=== PATIENT | male | born 1945 | race Caucasian/White ===

== ENCOUNTER 2022-11-18 18:31 | Emergency (ER) | payer MEDICARE ==
[~2022-11-18] VITALS: Ht 177.8 cm; Wt 94.4 kg
[~2022-11-18 18:31] MED LIST: ASPI325T PO; LIPI80TA PO; NORV2TAB NG; PRIN10TA PO; TYLE325T5 PO; XANA0.25 PO
[2022-11-18] MEDS ORDERED: DORZ2SOL5 (18:41)
[2022-11-18] MEDS ORDERED: ATOR40TA75 (18:41)
[2022-11-18] MEDS ORDERED: ECOT81TA5 PO (18:41)
[2022-11-18] MEDS ORDERED: AMLO1TAB25 (18:41)
[2022-11-18] MEDS ORDERED: LISI20TA33 (18:41)
[2022-11-18 22:14] LABS: BASO # 0.1 10^3/uL (0.0-0.2); BASO % 0.8 % (0.0-1.0); EOS # 0.2 10^3/uL (0.0-0.5); EOS % 1.7 % (0.0-3.0); HEMATOCRIT 42.7 % (42.0-52.0); HEMOGLOBIN 14.8 g/dl (13.5-17.5); LYMPH # 2.3 10^3/uL (1.5-5.0); LYMPH % 20.9 % (24.0-44.0); MEAN CORPUSCULAR HGB CONC 34.7 g/dl (32.0-36.5); MEAN CORPUSCULAR VOLUME 89.3 fl (80.0-96.0); MONO # 0.9 10^3/uL (0.0-0.8); NEUTROPHILS # 7.5 10^3/uL (1.5-8.5); NEUTROPHILS % 68.1 % (36.0-66.0); PLATELET COUNT, AUTOMATED 292 10^3/uL (150-450); RED BLOOD COUNT 4.78 10^6/uL (4.30-6.10)
[2022-11-18 22:30] VITALS: BP 172/82
[2022-11-18 22:37] LABS: INR 0.94; PARTIAL THROMBOPLASTIN TIME 25.3 SECONDS (24.8-34.2); PROTHROMBIN TIME 12.8 SECONDS (12.5-14.5)
[2022-11-18 22:44] LABS: BLOOD UREA NITROGEN 16 MG/DL (9-23); CALCIUM LEVEL 9.2 MG/DL (8.3-10.6); CARBON DIOXIDE LEVEL 21 MMOL/L (20-31); CHLORIDE LEVEL 107 MMOL/L (98-107); CK-MB VALUE MASS < 1.0 NG/ML (<3.6); CPK CREATINE PHOSPHOKINASE 59 U/L (46-171); CREATININE FOR GFR 1.06 MG/DL (0.70-1.30); GLOMERULAR FILTRATION RATE > 60.0 (>42); GLUCOSE, FASTING 168 MG/DL (74-106); MB/CK RELATIVE INDEX 1.69 (< OR =4); POTASSIUM SERUM 3.9 MMOL/L (3.5-5.1); SODIUM LEVEL 140 MMOL/L (136-145)
[2022-11-18 22:53] LABS: RSV AMPLIFICATION NEGATIVE (NEGATIVE)
[2022-11-18] MEDS ORDERED: ELIQ5TAB PO (23:24)
[2022-11-18] MEDS ORDERED: APIXABAN 5 MG TAB (ELIQUIS) PO ONE (23:25)
[2022-11-18] MEDS ORDERED: NORCO 5/325MG TABLET (HOME DOSE PACK) PO ONE (23:30)
== END 2022-11-18 23:40 | disposition home or self-care (01) ==
LOC: M ED 18:31
DX: I82.401 Acute embolism and thrombosis of unspecified deep veins of right lower extremity (principal); I10 Essential (primary) hypertension; Z86.73 Personal history of transient ischemic attack (TIA), and cerebral infarction without residual deficits; Z87.891 Personal history of nicotine dependence

== ENCOUNTER → 2022-12-23 | Outpatient (CLI) | payer MEDICARE ==
[~2022-12-23] MED LIST changes: +AMLO1TAB25; +ATOR40TA75; +DORZ2SOL5; +ECOT81TA5 PO; +ELIQ5TAB PO; +LISI20TA33
== END ==
LOC: M RAD 12:47
PROVIDERS: ATTEND Family Medicine
DX: I65.23 Occlusion and stenosis of bilateral carotid arteries (principal)

== ENCOUNTER → 2023-03-23 | Outpatient (CLI) | payer MEDICARE ==
[~2023-03-23] MED LIST changes: +PROHANCE 279.3MG/ML 15ML VIAL As Ordered ONE; +PROHANCE 279.3MG/ML 5ML VIAL As Ordered ONE
== END ==
LOC: M RAD 12:30
PROVIDERS: ATTEND Physician Assistant
DX: N42.9 Disorder of prostate, unspecified (principal); R97.20 Elevated prostate specific antigen [PSA]
CPT/HCPCS: 72197; A9576

== ENCOUNTER → 2023-04-27 | Outpatient (CLI) | payer MEDICARE ==
[~2023-04-27] MED LIST changes: -PROHANCE 279.3MG/ML 15ML VIAL As Ordered ONE; -PROHANCE 279.3MG/ML 5ML VIAL As Ordered ONE
== END ==
LOC: M SMT PRO 15:45
PROVIDERS: ATTEND Urology
DX: R97.20 Elevated prostate specific antigen [PSA] (principal)

== ENCOUNTER → 2023-06-07 | Outpatient (CLI) | payer MEDICARE ==
[2023-06-07 09:32] LABS: HEMATOCRIT 45.3 % (42.0-52.0); HEMOGLOBIN 15.3 g/dl (13.5-17.5); MEAN CORPUSCULAR HEMOGLOBIN 30.2 pg (27.0-33.0); MEAN CORPUSCULAR HGB CONC 33.8 g/dl (32.0-36.5); MEAN CORPUSCULAR VOLUME 89.3 fl (80.0-96.0); PLATELET COUNT, AUTOMATED 241 10^3/uL (150-450); RED BLOOD COUNT 5.07 10^6/uL (4.30-6.10); WHITE BLOOD COUNT 8.9 10^3/uL (4.0-10.0)
[2023-06-07 09:45] LABS: BLOOD UREA NITROGEN 17 MG/DL (9-23); CARBON DIOXIDE LEVEL 25 MMOL/L (20-31); CHLORIDE LEVEL 107 MMOL/L (98-107); CREATININE FOR GFR 0.99 MG/DL (0.70-1.30); GLOMERULAR FILTRATION RATE > 60.0 (>42); GLUCOSE, FASTING 145 MG/DL (74-106); POTASSIUM SERUM 4.4 MMOL/L (3.5-5.1); SODIUM LEVEL 142 MMOL/L (136-145)
== END ==
LOC: M LAB 07:50
PROVIDERS: ATTEND Urology
DX: Z01.818 Encounter for other preprocedural examination (principal); C61 Malignant neoplasm of prostate; N39.0 Urinary tract infection, site not specified

== ENCOUNTER 2023-06-16 06:21 | Inpatient (IN) | payer MEDICARE ==
[~2023-06-16] VITALS: Ht 177.8 cm; Wt 85.5 kg
[~2023-06-16 06:21] MED LIST changes: -AMLO1TAB25; +AMLO1TAB25 PO; -ATOR40TA75; +ATOR40TA75 PO; -DORZ2SOL5; +DORZ2SOL5 OD; -LISI20TA33; +LISI20TA33 PO
[2023-06-16] MEDS ORDERED: LR 1,000 ML IV SCH (06:35)
[2023-06-16] MEDS ORDERED: ceFAZolin SOD 2 GM in IV 1 EA IV ONE (06:45)
[2023-06-16] MEDS ORDERED: HEPARIN SOD (PORCINE) 5000UNITS/ML 1ML VIAL/SYRINGE SQ ONE (07:00)
[2023-06-16] MEDS ORDERED: LIDOCAINE 2% 100MG/5ML SDV (FOR ANES.) As Ordered ONE (07:09)
[2023-06-16] MEDS ORDERED: MIDAZOLAM INJ 2MG/2ML VIAL As Ordered ONE (07:09)
[2023-06-16] MEDS ORDERED: fentaNYL 100 MCG/2 ML INJECTION As Ordered ONE (07:09)
[2023-06-16] MEDS ORDERED: HYDROmorphone HCL 2MG/ML 1ML VIAL As Ordered ONE (07:09)
[2023-06-16] MEDS ORDERED: ONDANSETRON 4MG 2ML VIAL As Ordered ONE (07:10)
[2023-06-16] MEDS ORDERED: ROCURONIUM BROMIDE 50MG/5ML VIAL As Ordered ONE ×3 (07:10→10:03)
[2023-06-16] MEDS ORDERED: LIDOCAINE 1% SDV 30ML VIAL As Ordered ONE (07:10)
[2023-06-16] MEDS ORDERED: propofoL 200 MG/20 ML VIAL As Ordered ONE (07:10)
[2023-06-16] MEDS ORDERED: ONDANSETRON 4MG 2ML VIAL IV PRN (07:30)
[2023-06-16] MEDS ORDERED: PERCOCET 5MG/325MG TAB PO PRN (07:30)
[2023-06-16] MEDS ORDERED: ACETAMINOPHEN 1000MG 100ML IV BAG As Ordered ONE (08:12)
[2023-06-16] MEDS ORDERED: GLYCOPYRROLATE INJ 0.2 MG/ML 2 ML VIAL As Ordered ONE (08:21)
[2023-06-16] MEDS: DOCUSATE SODIUM 100MG CAPSULE PO SCH ×2 (09:00→21:19)
[2023-06-16] MEDS ORDERED: ePHEDrine SULFATE 25 MG/5 ML(5MG/ML) SYRINGE As Ordered ONE (11:06)
[2023-06-16] MEDS ORDERED: SUGAMMADEX SODIUM 500 MG/5 ML VIAL (BRIDION) As Ordered ONE (11:07)
[2023-06-16] MEDS ORDERED: ceFAZolin 2 GM/D5W 50 ML IV BAG As Ordered ONE (11:32)
[2023-06-16 12:48] LABS: HEMATOCRIT 40.1 % (42.0-52.0); HEMOGLOBIN 13.9 g/dl (13.5-17.5); MEAN CORPUSCULAR HEMOGLOBIN 30.5 pg (27.0-33.0); MEAN CORPUSCULAR HGB CONC 34.7 g/dl (32.0-36.5); MEAN CORPUSCULAR VOLUME 87.9 fl (80.0-96.0); PLATELET COUNT, AUTOMATED 209 10^3/uL (150-450); RED BLOOD COUNT 4.56 10^6/uL (4.30-6.10); WHITE BLOOD COUNT 11.6 10^3/uL (4.0-10.0)
[2023-06-16 13:10] LABS: BLOOD UREA NITROGEN 23 MG/DL (9-23); CALCIUM LEVEL 8.3 MG/DL (8.3-10.6); CARBON DIOXIDE LEVEL 22 MMOL/L (20-31); CHLORIDE LEVEL 105 MMOL/L (98-107); CREATININE FOR GFR 1.08 MG/DL (0.70-1.30); GLOMERULAR FILTRATION RATE > 60.0 (>42); GLUCOSE, FASTING 185 MG/DL (74-106); POTASSIUM SERUM 4.9 MMOL/L (3.5-5.1); SODIUM LEVEL 138 MMOL/L (136-145)
[2023-06-16] MEDS: HEPARIN SOD (PORCINE) 5000UNITS/ML 1ML VIAL/SYRINGE SC SCH ×2 (14:00→21:20)
[2023-06-16 14:20] VITALS: BP 141/77; TEMP 97.5; O2SAT 98
[2023-06-16 14:50] VITALS: BP 134/73; TEMP 97.5; O2SAT 94
[2023-06-16 15:20] VITALS: BP 136/85; TEMP 97.7; O2SAT 97
[2023-06-16] MEDS ORDERED: HOME MED LIST COMPLETE! XX SCH (15:20)
[2023-06-16] MEDS: NS 1,000 ML IV SCH (16:50)
[2023-06-16] MEDS: ceFAZolin SOD 1 GM in D5W MINI-BAG PLUS 50 ML IV SCH ×2 (16:51→23:34)
[2023-06-16] MEDS: ATORVASTATIN 20 MG TAB PO SCH (21:19)
[2023-06-16 22:00] VITALS: BP 172/88; TEMP 98.6; O2SAT 94
[2023-06-16] MEDS: ACETAMINOPHEN TAB 650MG DOSE (2X325MG) PO PRN (23:35)
[2023-06-16 23:45] VITALS: BP 168/84
[2023-06-17] VITALS (9 sets, daily range): BP systolic 128–164; BP diastolic 72–91; TEMP 98.1–98.8; O2SAT 90–94
[2023-06-17] MEDS ORDERED: hydroCHLOROthiazide 12.5 MG CAPSULE PO ONE
[2023-06-17] MEDS: NS 1,000 ML IV SCH (03:30)
[2023-06-17] MEDS: HEPARIN SOD (PORCINE) 5000UNITS/ML 1ML VIAL/SYRINGE SC SCH ×3 (05:52→22:11)
[2023-06-17] MEDS: ACETAMINOPHEN TAB 650MG DOSE (2X325MG) PO PRN ×2 (05:52→11:11)
[2023-06-17 06:04] LABS: HEMATOCRIT 38.6 % (42.0-52.0); HEMOGLOBIN 13.5 g/dl (13.5-17.5); MEAN CORPUSCULAR HEMOGLOBIN 30.1 pg (27.0-33.0); PLATELET COUNT, AUTOMATED 232 10^3/uL (150-450); RED BLOOD COUNT 4.49 10^6/uL (4.30-6.10); WHITE BLOOD COUNT 15.8 10^3/uL (4.0-10.0)
[2023-06-17 06:28] LABS: BLOOD UREA NITROGEN 23 MG/DL (9-23); CALCIUM LEVEL 8.7 MG/DL (8.3-10.6); CARBON DIOXIDE LEVEL 22 MMOL/L (20-31); CHLORIDE LEVEL 105 MMOL/L (98-107); CREATININE FOR GFR 0.96 MG/DL (0.70-1.30); GLOMERULAR FILTRATION RATE > 60.0 (>42); GLUCOSE, FASTING 160 MG/DL (74-106); POTASSIUM SERUM 4.2 MMOL/L (3.5-5.1); SODIUM LEVEL 138 MMOL/L (136-145)
[2023-06-17] MEDS: DOCUSATE SODIUM 100MG CAPSULE PO SCH ×2 (08:41→22:12)
[2023-06-17] MEDS: PERCOCET 5MG/325MG TAB PO PRN ×3 (13:08→23:28)
[2023-06-17] MEDS: ATORVASTATIN 20 MG TAB PO SCH (22:11)
[2023-06-18 02:00] VITALS: BP 141/97; TEMP 98.4; O2SAT 90
[2023-06-18] MEDS: PERCOCET 5MG/325MG TAB PO PRN ×2 (03:41→10:31)
[2023-06-18] MEDS: HEPARIN SOD (PORCINE) 5000UNITS/ML 1ML VIAL/SYRINGE SC SCH (05:47)
[2023-06-18 06:00] VITALS: BP 142/94; TEMP 98.2; O2SAT 91
[2023-06-18] MEDS ORDERED: CIPROFLOXACIN 500MG TABLET PO SCH (06:00)
[2023-06-18 07:49] LABS: HEMATOCRIT 38.6 % (42.0-52.0); HEMOGLOBIN 13.2 g/dl (13.5-17.5); MEAN CORPUSCULAR HEMOGLOBIN 30.1 pg (27.0-33.0); MEAN CORPUSCULAR HGB CONC 34.2 g/dl (32.0-36.5); MEAN CORPUSCULAR VOLUME 88.1 fl (80.0-96.0); PLATELET COUNT, AUTOMATED 212 10^3/uL (150-450); RED BLOOD COUNT 4.38 10^6/uL (4.30-6.10); WHITE BLOOD COUNT 12.2 10^3/uL (4.0-10.0)
[2023-06-18 08:11] LABS: BLOOD UREA NITROGEN 24 MG/DL (9-23); CALCIUM LEVEL 8.3 MG/DL (8.3-10.6); CARBON DIOXIDE LEVEL 25 MMOL/L (20-31); CHLORIDE LEVEL 101 MMOL/L (98-107); CREATININE FOR GFR 0.97 MG/DL (0.70-1.30); GLOMERULAR FILTRATION RATE > 60.0 (>42); GLUCOSE, FASTING 120 MG/DL (74-106); POTASSIUM SERUM 4.2 MMOL/L (3.5-5.1); SODIUM LEVEL 135 MMOL/L (136-145)
[2023-06-18 08:51] LABS: CREATININE BF 0.9 MG/DL (NOT ESTABLISHED); SOURCE, BODY FLUID CREATININE PERITONEAL
[2023-06-18] MEDS: DOCUSATE SODIUM 100MG CAPSULE PO SCH (09:00)
[2023-06-18] MEDS ORDERED: PERCOCET PO (12:11)
[2023-06-18] MEDS ORDERED: CIPR500T39 PO (12:11)
[2023-06-18] MEDS ORDERED: COLA100C5 PO (12:11)
== END 2023-06-18 14:20 | disposition home or self-care (01) | DRG 708 ==
LOC: M OR 06:21 → M MS5PR 14:20
PROVIDERS: ADMIT Urology; ATTEND Urology
PROC: 07BC4ZX Excision of Pelvis Lymphatic, Percutaneous Endoscopic Approach, Diagnostic (ICD-10-PCS; 2023-06-16)
PROC: 8E0W4CZ Robotic Assisted Procedure of Trunk Region, Percutaneous Endoscopic Approach (ICD-10-PCS; 2023-06-16)
PROC: 0VT04ZZ Resection of Prostate, Percutaneous Endoscopic Approach (ICD-10-PCS; principal; 2023-06-16 07:30)
DX: C61 Malignant neoplasm of prostate (principal); I10 Essential (primary) hypertension; Z20.822 Contact with and (suspected) exposure to COVID-19; Z79.899 Other long term (current) drug therapy

== ENCOUNTER → 2023-07-26 | Outpatient (REF) | payer MEDICARE ==
[~2023-07-26] MED LIST changes: +CIPR500T39 PO; +COLA100C5 PO; +PERCOCET PO
[2023-07-26 18:01] LABS: AMORPHOUS SEDIMENT LARGE (NEGATIVE); APPEARANCE, URINE TURBID (CLEAR); BACTERIA, URINE AUTO NEGATIVE (NEGATIVE); BILIRUBIN, URINE AUTO NEGATIVE (NEGATIVE); BLOOD, URINE BLOOD NEGATIVE (NEGATIVE); CALCIUM OXALATE CRYSTALS SMALL; COLOR, URINE YELLOW (YELLOW); GLUCOSE, URINE (UA) AUTO NEGATIVE (NEGATIVE); KETONE, URINE AUTO NEGATIVE (NEGATIVE); LEUKOCYTE ESTERASE, URINE AUTO TRACE (NEGATIVE); MUCUS, URINE MODERATE (NEGATIVE); NITRITE, URINE AUTO NEGATIVE (NEGATIVE); PROTEIN, URINE AUTO NEGATIVE (NEGATIVE); RBC, URINE AUTO 0 /HPF (0-3); SPECIFIC GRAVITY URINE AUTO 1.027 (1.002-1.035); SQUAMOUS EPITHELIAL CELL UR AU 0 /HPF (0-6); WBC, URINE AUTO 1 /HPF (0-3)
== END ==
LOC: M SMT 17:01
PROVIDERS: ATTEND Urology
DX: N39.0 Urinary tract infection, site not specified (principal)

== ENCOUNTER → 2023-12-10 | Outpatient (CLI) | payer MEDICARE ==
[2023-12-10 12:41] LABS: AMORPHOUS SEDIMENT SMALL (NEGATIVE); APPEARANCE, URINE HAZY (CLEAR); BACTERIA, URINE AUTO NEGATIVE (NEGATIVE); BILIRUBIN, URINE AUTO NEGATIVE (NEGATIVE); BLOOD, URINE BLOOD NEGATIVE (NEGATIVE); COLOR, URINE AMBER (YELLOW); GLUCOSE, URINE (UA) AUTO 1+ mg/dL (NEGATIVE); GRANULAR CAST, URINE AUTO 1 /LPF; KETONE, URINE AUTO NEGATIVE (NEGATIVE); LEUKOCYTE ESTERASE, URINE AUTO NEGATIVE (NEGATIVE); MUCUS, URINE SMALL (NEGATIVE); NITRITE, URINE AUTO NEGATIVE (NEGATIVE); PROTEIN, URINE AUTO 1+ mg/dL (NEGATIVE); RBC, URINE AUTO 1 /HPF (0-3); SPECIFIC GRAVITY URINE AUTO 1.021 (1.002-1.035); SQUAMOUS EPITHELIAL CELL UR AU 0 /HPF (0-6); WBC, URINE AUTO 1 /HPF (0-3)
== END ==
LOC: M PLALAB 10:04
PROVIDERS: ATTEND Urology
DX: C61 Malignant neoplasm of prostate (principal); N39.0 Urinary tract infection, site not specified

== ENCOUNTER → 2024-01-24 | Outpatient (CLI) | payer MEDICARE | LOC: M PLALAB 11:47 | PROVIDERS: ATTEND Urology | DX: C61 Malignant neoplasm of prostate (principal) ==

== ENCOUNTER → 2024-02-09 | Outpatient (CLI) | payer MEDICARE ==
[~2024-02-09] MED LIST changes: +BICA50TA4 PO
== END ==
LOC: M ONCR 14:46
PROVIDERS: ATTEND General Practice
DX: C61 Malignant neoplasm of prostate (principal); N52.31 Erectile dysfunction following radical prostatectomy; N39.46 Mixed incontinence; Z85.820 Personal history of malignant melanoma of skin; Z79.899 Other long term (current) drug therapy; Z90.79 Acquired absence of other genital organ(s)

== ENCOUNTER → 2024-02-29 | Outpatient (CLI) | payer MEDICARE ==
[~2024-02-29] MED LIST changes: +ONDA-282 PO
[2024-02-29] MEDS: LEUPROLIDE ACETATE 45 MG SC ONE (11:29)
== END ==
LOC: M ONCR 11:24
PROVIDERS: ATTEND General Practice
DX: C61 Malignant neoplasm of prostate (principal)
CPT/HCPCS: 96402; G0463; J9217

== ENCOUNTER 2024-03-17 11:38 | Outpatient (RCR) | payer MEDICARE ==
[~2024-03-17 11:38] MED LIST changes: -ONDA-282 PO
[2024-03-27] MEDS ORDERED: ONDA-282 PO (10:23)
== END 2024-03-18 ==
LOC: M ONCR 11:38
PROVIDERS: ATTEND General Practice
DX: Z51.0 Encounter for antineoplastic radiation therapy (principal); C61 Malignant neoplasm of prostate

== ENCOUNTER → 2024-04-17 | Outpatient (RCR) | payer MEDICARE ==
[~2024-04-17] MED LIST changes: +ONDA-282 PO; +OXYB10TA23 PO
== END ==
LOC: M ONCR 03-21 11:38
PROVIDERS: ATTEND General Practice
DX: Z51.0 Encounter for antineoplastic radiation therapy (principal); C61 Malignant neoplasm of prostate

== ENCOUNTER 2024-05-03 08:35 | Outpatient (RCR) | payer MEDICARE | END 2024-05-18 | LOC: M ONCR 08:35 | PROVIDERS: ATTEND General Practice | DX: Z51.0 Encounter for antineoplastic radiation therapy (principal); C61 Malignant neoplasm of prostate ==

== ENCOUNTER → 2024-06-05 | Outpatient (CLI) | payer MEDICARE ==
[~2024-06-05] MED LIST changes: +GASTROGRAFIN SOLUTION 30ML ONE; +ISOVUE-370 76% 100ML VIAL ONE
== END ==
LOC: M PLAIMG 08:35
PROVIDERS: ATTEND Family Medicine
DX: R11.2 Nausea with vomiting, unspecified (principal); R63.4 Abnormal weight loss; C61 Malignant neoplasm of prostate; J98.11 Atelectasis; R93.3 Abnormal findings on diagnostic imaging of other parts of digestive tract; I25.10 Atherosclerotic heart disease of native coronary artery without angina pectoris; R93.2 Abnormal findings on diagnostic imaging of liver and biliary tract; K40.90 Unilateral inguinal hernia, without obstruction or gangrene, not specified as recurrent; M47.816 Spondylosis without myelopathy or radiculopathy, lumbar region
CPT/HCPCS: 74177; Q9963; Q9967